=== PATIENT | female | born 1945 | race Caucasian/White ===

== ENCOUNTER 2022-12-29 09:15 | Outpatient (OUT) | payer MEDICARE, SELFPAY ==
--- NOTE | 2022-12-29 09:18 | MM_ITS ---
Patient: GURJIT GREER Exam Date: 12/29/2022 : 1945 Gender:F Ordering : DR ANIBAL HILLMAN M.D. Admission #: [id number] Family : Order #: [id number] CLICK HERE TO VIEW EXAM RADIOLOGY REPORT PROCEDURE: MM TOMOSYNTHESIS SCREENING BI COMPARISON: MG MAMM SCREEN 3D CORRINA CAD, 12/27/2021. MG MAMM SCREEN 3D CORRINA CAD, 12/22/2020. MG MAMM SCREEN CORRINA W CAD, 03/04/2019. MG MAMM CORRINA SCRN W CAD DIG, 01/10/2013. INDICATIONS: Screening Calculator Name NCI Breast Cancer Risk Assessment Tool 5 Year Breast Cancer Risk 1.90% Lifetime Breast Cancer Risk 3.80% Personal Breast Cancer No Personal Ovarian Cancer No Treatments None Family Cancers Aunt-maternal with breast cancer at age 80. LOCATION: [facility] BREAST COMPOSITION: Heterogeneously dense,which may obscure small masses. FINDINGS: DIAGNOSTIC CATEGORY 2--BENIGN FINDING: RIGHT BREAST: No significant suspicious finding. Scattered benign-appearing calcifications are present. Stable chronic nodule lower inner quadrant. No significant change has occurred. LEFT BREAST: No significant suspicious finding. Scattered benign-appearing calcifications are present. Stable , chronic architectural distortion or scarring within anterior upper-outer quadrant. No significant change has occurred. RECOMMENDATIONS: ROUTINE MAMMOGRAM AND CLINICAL EVALUATION IN 12 MONTHS. PLEASE NOTE: A NORMAL MAMMOGRAM DOES NOT EXCLUDE THE POSSIBILITY OF BREAST CANCER. A CLINICALLY SUSPICIOUS PALPABLE LUMP SHOULD BE BIOPSIED. Dictated by: Robbi Pate M.D. on 12/29/2022 at 14:23 Approved by: Robbi Pate M.D. on 12/29/2022 at 14:27
== END 2022-12-29 09:16 | disposition home or self-care (01) ==
LOC: MAMMO 09:15
PROVIDERS: PCP Internal Medicine; Visit Provider Internal Medicine
DX: Z12.31 Encounter for screening mammogram for malignant neoplasm of breast (principal); Z80.3 Family history of malignant neoplasm of breast
CPT/HCPCS: 77063; 77067

== ENCOUNTER 2023-12-11 09:51 | Outpatient (OUT) | payer MEDICARE, SELFPAY ==
--- NOTE | 2023-12-11 10:07 | XR_ITS ---
[address] [address] Patient Name: GURJIT GREER MRN: [id number] date: 1945 Sex: F Assigned Patient Location: [facility] Current Patient Location: Accession/Order Number: [id number] Exam Date: 12/11/2023 10:20 Report Date: 12/12/2023 06:53 At the request of: MJ SEAMAN Procedure: XR DEXA axial skeleton EXAMINATION: XR DEXA axial skeleton HISTORY: Estrogen Deficiency E28.39 COMPARISON: DEXA bone densitometry 12/22/2020 TECHNIQUE: Dual-energy X-ray absorptiometry (DXA) was performed. FINDINGS: SPINE ANALYSIS: Average bone mineral density is 1.308 g/cm2. T-score (standard deviation relative to young adult mean): 0.9 . +0.9% change since prior study. HIP ANALYSIS: Lowest bone mineral density is within the left femoral neck, 0.950 g/cm2. T-score (standard deviation relative to young adult mean): -0.6 . +1.8% change since prior study. XR/XR DEXA axial skeleton IMPRESSION: World Health Organization Classification: Normal - Low Fracture Risk FRAX: Cannot be calculated. Pharmacologic treatment recommendations * No uniform recommendation applies to all patients. Management plans must be individualized. * Consider initiating pharmacologic treatment in postmenopausal women and men >= 50 years of age who have the following: Primary fracture prevention: * T-score <= - 2.5 at the femoral neck, total hip, lumbar spine, 33% radius (some uncertainty with existing data) by DXA. * Low bone mass (osteopenia: T-score between - 1.0 and - 2.5) at the femoral neck or total hip by DXA with a 10-year hip fracture risk >= 3% or a 10-year major osteoporosis-related fracture risk >= 20% (i.e., clinical vertebral, hip, forearm, or proximal humerus) based on the [place]-adapted FRAXregistered model. Secondary fracture prevention: * Fracture of the hip or vertebra regardless of BMD [4, 5]. * Fracture of proximal humerus, pelvis, or distal forearm in persons with low bone mass (osteopenia: T-score between - 1.0 and - 2.5). The decision to treat should be individualized in persons with a fracture of the proximal humerus, pelvis, or distal forearm who do not have osteopenia or low BMD [12, 13]. Keron MS, Joao SL, Mindy KL, Abundio EM, Tito KG, AJ, Natty ES. The clinician's guide to prevention and treatment of osteoporosis. Osteoporos Int. 2021;33(10):6989-5813. doi: 10.1007/d35789-794-91254-r. Epub 2021Sep 02. Erratum in: Osteoporos Int. 2021Dec 02;: PMID: [id number]; PMCID: [id number]. Electronically authenticated by: FIDELINA BORREGO Date: 12/12/2023 06:53
== END 2023-12-11 09:52 | disposition home or self-care (01) ==
LOC: RAD 09:51
PROVIDERS: PCP Internal Medicine; Visit Provider Physician Assistant
DX: E28.39 Other primary ovarian failure (principal)
CPT/HCPCS: 77080